=== PATIENT | female | born 1995 | race Two or more races ===

== ENCOUNTER 2023-12-05 12:13 | Emergency (ER) | payer BC ==
[~2023-12-05] VITALS: Ht 172.7 cm; Wt 65.9 kg
[2023-12-05] MEDS: mag hydrox/Alum hydrox/simeth 30ml oral suspension PO ONE (14:30)
[2023-12-05 15:14] VITALS: BP 99/68; PULSE 72; RESP 14; TEMP 96.8; O2SAT 98
== END 2023-12-05 15:18 | disposition home or self-care (01) ==
LOC: ER 12:13
DX: M94.0 Chondrocostal junction syndrome [Tietze] (principal); F41.9 Anxiety disorder, unspecified
CPT/HCPCS: 93005; 99283